=== PATIENT | male | born 1940 | race Caucasian/White ===

== ENCOUNTER 2017-11-23 15:20 | Inpatient (IN) | payer MEDICARE, BC ==
[~2017-11-23] VITALS: Ht 182.9 cm; Wt 88.1 kg
[~2017-11-23 15:20] MED LIST: ALLO300 PO; ALLO300T2 PO; AMIO200T PO; CARV3.12 PO; CARV3.125 PO; CEFAZOLIN; CYCL10TA PO; FAMO20TA2 PO; FURO20TA PO; GLEE400T2 PO; LIDO1PAD52 TOPICAL; MIDO5TAB PO; NEPHRO PO; NEPHTAB3 PO; PERI PO; POTA-163 PO; POTA20TA5 PO; TAMS0.4C4; TAMS5CAP PO; THERTAB15 PO; [UNRECOGNIZED DRUG - CODE] IV
[2017-11-23] MEDS ORDERED: SODIUM CHLORIDE 0.9% FLUSH 10 ML FLUSH IV FLUSH PRN ×3 (15:45→18:00)
[2017-11-23] MEDS ORDERED: MAGNESIUM HYDROXIDE SUSP 30 ML CUP PO PRN (15:45)
[2017-11-23] MEDS ORDERED: LACTULOSE SYRUP 20 GM/30 ML CUP PO PRN (15:45)
[2017-11-23] MEDS ORDERED: Vancomycin Consult Pharmacy 1 EA OTHER SCH (15:45)
[2017-11-23] MEDS ORDERED: ONDANSETRON HCL 4 MG/2 ML VIAL IVP PRN (15:45)
[2017-11-23] MEDS ORDERED: BISACODYL 10 MG SUPP RECTAL PRN (15:45)
[2017-11-23] MEDS ORDERED: NALOXONE HCL 0.4 MG/ML AMP IV PUSH PRN (15:45)
[2017-11-23] MEDS ORDERED: ACETAMINOPHEN 325 MG TAB PO PRN (15:45)
[2017-11-23] MEDS ORDERED: SENNOSIDES 8.6 MG TAB PO PRN (15:45)
--- NOTE | 2017-11-23 15:51 | HHI.HP ---
[facility] Primary [facility] Physician No Primary Care Physician Admission Diagnosis Symptomatic hypotension Diagnoses: (1) Hypotension Diagnosis: Principal (2) Hypoxemia Diagnosis: Principal (3) Peritonitis associated with peritoneal dialysis Diagnosis: Principal (4) Status post lumbar laminectomy Diagnosis: Principal (5) ESRD on peritoneal dialysis (6) A-fib Chief Complaint: Hypotension Travel History International Travel<30 Days: No Contact w/Intl Traveler <30 Da: No Traveled to Known Affected Are: No History of Present Illness Written by Kingston Ruffin, acting as scribe for Dr. Govea on 11/23/17 at 15: 50. 77-year-old male with past medical history significant for ESRD on PD, hypotension, A. fib anticoagulated on Eliquis at home, cardiomyopathy, anemia, aortic stenosis, CML, PVD, on chronic oxygen at home who suffered a mechanical fall landing on his back on 11/07 while trying to get out of daughter's car. Review of medical records. Patient was evaluated in the emergency department following fall and imaging as well as CT scan did not show any fractures therefore he was discharged home with pain medication. He returned back to the emergency department due to pain at [facility] where he was noted to have unstable acute L1 fracture. He was transferred to [facility] for neurosurgical evaluation. CT of the spine which showed L1-L2 fractures with prominent paravertebral hematoma with a hemoglobin of 7.7. On 11/10 underwent L1-L2 pedicular screw fixation by . Following surgery his stay was complicated due to hypotension requiring ICU stay with vasopressors. Postoperatively patient also had positive cultures of peritoneal fluid which grew MSSA and infectious disease was consulted. He was treated with vancomycin and cefepime initially, and later treated with intraperitoneal cefazolin. Recommendations were made to continue cefazolin 1 g with PD exchange through 12/01. He was cleared for discharge and admitted to [facility], [facility] was following him while he was in rehab. He is also being followed by nephrology and ID services. There was concerns for lumbar surgical incision drainage and MRI was completed which revealed fluid collections subcutaneously as well as a possible hematoma. This morning patient was in gym participating in physical therapy when his blood pressure dropped 78/50 and he became symptomatic. Patient was transferred back to bed and given a 250 mL bolus of normal saline with little to no improvement, BP remained once again systolic in the 70s. Patient also began generalized twitching as well as dozing off during conversation and hallucinations. Chest x -ray was obtained which showed moderate size pleural effusions along with possible atelectasis or consolidation. Labs from this morning with no leukocytosis, neutrophil count at 80.7, BMP stable, elevated creatinine secondary to end-stage renal disease. ABG did reveal hypoxia with a PCO2 of 57 , pH 7.45 and an O2 saturation of 87. He was placed on 3 L nasal cannula, but oxygen saturation unable to be obtained. She was seen and examined in room with nurse and daughter at bedside. He is awake, alert, and oriented 3 answering questions appropriately. There are some generalized twitching of his hands and feet. Patient denies any hallucinations although daughter states patient believes that there is someone else in the room. He denies any shortness of breath, cough, chest pain, headache, nausea, vomiting, or diarrhea. Patient did have one episode of loose stools when he arrived to rehab but this has resolved. He does report some lightheadedness. Nursing does say that patient has not been eating as well. Review of Systems Except as stated in HPI: all other systems reviewed are Neg Past Family Social History Past Medical History Hypotension End-stage renal disease on PD Cardiomyopathy with preserved EF Chronic anemia CML Mild aortic stenosis PVD A. fib Home oxygen Past Surgical History Bilateral knee surgeries Left hip replacement Bilateral inguinal hernia repair Bilateral cataract surgery PD catheter placement L1-L2 pedicular screw fixation Reported Medications Reported Meds & Active Scripts Active Zosyn Inj (Piperacillin Sod/Tazobactam Sod) 2.25 Gram Inj 2.25 Gm IV Q12HR 10 Days Potassium Chloride Microencaps 20 Meq Tab 20 Meq PO DAILY 30 Days Zyloprim (Allopurinol) 300 Mg Tab 150 Mg PO DAILY 30 Days Thera Tablet (Multivitamin with Folic Acid) 400 Mcg Tablet 1 Tab PO DAILY 30 Days Nephro-Jenelle Rx (Vitamin B Cmplx/Vit C/Folic AC) 1 Tab 1 Cap PO DAILY 30 Days Famotidine 20 Mg Tab 20 Mg PO DAILY 30 Days Gnp Senna Plus 8.6-50 mg (Sennosides-Docusate Sodium) 8.6 Mg-50 Mg Tab 1 Tab PO BID 30 Days Coreg (Carvedilol) 3.125 Mg Tab 3.125 Mg PO Q12HR 30 Days Amiodarone (Amiodarone HCl) 200 Mg Tab 200 Mg PO DAILY 1 Days Flexeril (Cyclobenzaprine HCl) 10 Mg Tab 10 Mg PO Q8H PRN 30 Days Flomax (Tamsulosin HCl) 0.4 Mg Cap 0.4 Mg PO HS 30 Days Midodrine 5 Mg Tab 5 Mg PO TID@07,12,17 30 Days [ceFAZolin INJ] 500 MG Inj 1,000 Mg .XX WITH DIALYSIS Reported Tamsulosin (Tamsulosin HCl) 0.4 Mg Cap 0.4 Mg HS Potassium Chloride ER (Potassium Chloride) 20 Meq Tab 20 Meq PO DAILY Nephro-Jenelle (B-Complex W/ C & Folic Acid) 1 Tab 1 Tab PO DAILY Lidocaine Patch 12 HR (Lidocaine) 5 % Patch 1 Patch TOPICAL DAILY Remove patch after 12 hours Carvedilol 3.125 Mg Tab 3.125 Mg PO BID Amiodarone (Amiodarone HCl) 200 Mg Tab 200 Mg PO DAILY Famotidine 20 Mg Tab 20 Mg PO DAILY Flexeril (Cyclobenzaprine HCl) 10 Mg Tab 10 Mg PO TID PRN Gleevec 400 Mg Tab (Imatinib Mesylate) 400 Mg Tab 400 Mg PO DAILY Allopurinol 300 Mg Tab 300 Mg PO DAILY Furosemide 20 Mg Tab 20 Mg PO DAILY Allergies: Coded Allergies: Sulfa (Sulfonamide Antibiotics) (Verified Allergy, Severe, 11/21/17) hydrocodone (Verified Allergy, Unknown, 11/21/17) levofloxacin (Verified Allergy, Unknown, 11/21/17) Family History Father: [place] Social History Tobacco: Former smoker, quit smoking 50 years ago Alcohol use: Occasionally Illicit drug use: Denies Physical Exam Physical Exam GENERAL: This is a well-developed male in no acute distress SKIN: Cool and dry. Bilateral lower extremity PVD skin discoloration. Left anterior lower leg with stage II wound that is dry open to air. Bilateral upper extremity small scattered ecchymosis with dry skin. Back and flank areas with ecchymosis and +1 pitting edema. HEAD: Atraumatic. Normocephalic. EYES: Pupils equal round and reactive. Extraocular motions intact. No scleral icterus. No injection or drainage. ENT: Nose without bleeding, purulent drainage. Throat without erythema. Airway patent. NECK: Trachea midline. No JVD. CARDIOVASCULAR: Regular rate and rhythm without murmurs, gallops, or rubs. RESPIRATORY: Clear to auscultation. Breath sounds equal bilaterally. No wheezes , rales, or rhonchi. GASTROINTESTINAL: Abdomen soft, non-tender, nondistended . No guarding. PD dialysis catheter in place with dry and intact dressings. MUSCULOSKELETAL: Extremities without clubbing, cyanosis, or edema. No joint tenderness, effusion, or edema noted. No calf tenderness. Lumbar spine incision with dehiscence now extending to the entire incision, moderate amounts of serosanguineous drainage with some brown tinge on dressing. No surrounding redness or warmth. NEUROLOGICAL: Awake and alert, 3. Dozing in and out. Cranial nerves II through XII grossly intact. Motor and sensory grossly within normal limits. 4/ 5 muscle strength in all muscle groups. Normal speech. Occasional hand and foot jerking/twitching. Caprini VTE Risk Assessment Caprini VTE Risk Assessment: Mod/High Risk (score >= 2) VTE Pharm Contraindication: Spinal surgery Caprini Risk Assessment Model Point Value = 1 Point Value = 2 Point Value = 3 Point Value = 5 Age 41-60 Minor surgery BMI > 25 kg/m2 Swollen legs Varicose veins or History of unexplained or recurrent spontaneous Oral contraceptives or hormone replacement Sepsis (< 1 month) Serious lung disease, including pneumonia (< 1 month) Abnormal pulmonary function Acute myocardial infarction Congestive heart failure (< 1 month) History of inflammatory bowel disease Medical patient at bed rest Age 61-74 Arthroscopic surgery Major open surgery (> 45 min) Laparoscopic surgery (> 45 min) Malignancy Confined to bed (> 72 hours) Immobilizing plaster cast Central venous access Age >= 75 History of VTE Family history of VTE Factor V Leiden Prothrombin [id number] Lupus anticoagulant Anticardiolipin antibodies Elevated serum homocysteine Heparin-induced thrombocytopenia Other congenital or acquired thrombophilia Stroke (< 1 month) Elective arthroplasty Hip, pelvis, or leg fracture Acute spinal cord injury (< 1 month) Prophylaxis Regimen Total Risk Factor Score Risk Level Prophylaxis Regimen 0-1 Low Early ambulation 2 Moderate Order ONE of the following: *Sequential Compression Device (SCD) *Heparin 5000 units SQ BID 3-4 Higher Order ONE of the following medications: *Heparin 5000 units SQ TID *Enoxaparin/Lovenox 40 mg SQ daily (WT < 150 kg, CrCl > 30 mL/min) *Enoxaparin/Lovenox 30 mg SQ daily (WT < 150 kg, CrCl > 10-29 mL/min) *Enoxaparin/Lovenox 30 mg SQ BID (WT < 150 kg, CrCl > 30 mL/min) AND/OR *Sequential Compression Device (SCD) 5 or more Highest Order ONE of the following medications: *Heparin 5000 units SQ TID (Preferred with Epidurals) *Enoxaparin/Lovenox 40 mg SQ daily (WT < 150 kg, CrCl > 30 mL/min) *Enoxaparin/Lovenox 30 mg SQ daily (WT < 150 kg, CrCl > 10-29 mL/min) *Enoxaparin/Lovenox 30 mg SQ BID (WT < 150 kg, CrCl > 30 mL/min) AND *Sequential Compression Device (SCD) Assessment and Plan Assessment and Plan 77-year-old male with past medical history significant for ESRD on PD, hypotension, A. fib anticoagulated on Eliquis at home, cardiomyopathy, anemia, aortic stenosis, CML, PVD, on chronic oxygen at home who suffered a mechanical fall landing on his back on 11/07 while trying to get out of daughter's car. CT of the spine which showed L1-L2 fractures with prominent paravertebral hematoma with a hemoglobin of 7.7. On 11/10 underwent L1-L2 pedicular screw fixation by . Postoperatively patient also had positive cultures of peritoneal fluid which grew MSSA and infectious disease was consulted. He was treated with vancomycin and cefepime initially, and later treated with intraperitoneal cefazolin. Recommendations were made to continue cefazolin 1 g with PD exchange through 12/01. [facility] transferred to inpatient setting due to symptomatic hypotension with concerns for sepsis. Symptomatic hypotension -Since admission patient's blood pressure has been on the low side. Daughter at bedside reports systolic ranges from 80s-100. In the past month has become more difficult to keep his BP up -Patient received 250 mL's of normal saline IV 2 while in rehab with minimal improvement of blood pressure, 80/50's -Suspect secondary to poor p.o. intake, in combination with ongoing peritoneal dialysis. He is negative about 1700ml. -We will admit to telemetry floor with close monitoring of vital signs and fluid status -Increase Midrin to 10 mg 3 times daily, and Florinef if needed Hypoxemia secondary to Healthcare acquired pneumonia -ABG with pH 7.45, PO2 57, bicarb 27, O2 saturation 87 -Chest x-ray completed shortly after patient completed first IV fluid bolus. X-ray personally reviewed, moderate sized bilateral pleural effusions with atelectasis or consolidation. Right side consolidation possible early developing pneumonia. -Patient started on broad-spectrum antibiotics, IV vancomycin and Zosyn -O2 nasal cannula to keep sats greater than 92% -Duo nebs as needed, incentive spirometer -PT/OT while inpatient Bilateral pleural effusions -Gentle hydration for now to help elevate BP. Once this is established plans to gently diurese. Mechanical fall with lumbar fracture Wound with increased drainage/dehiscence -s/p L1-L2 pedicular screw fixation by Dr. Sim - Pain control with Tramadol and Flexeril, stool softener -Further dehiscence of wound with ongoing copious amounts of drainage. -MRI of lumbar spine completed on 11/22: with uniform intensity subcutaneous fluid collection at L1-2 level measuring 5.4 x 1.1 x 5.6 cm which does not appear to extend beyond the superficial soft tissues. Although nonspecific given lack of contrast administration, the uniform signal intensity suggests postoperative seroma. Superficial subcutaneous heterogeneous collection at L5- S1 level is consistent with a superficial hematoma measuring 8.0 x 1.2 x 6.6 cm. -Nursing staff in [facility] contacted neurosurgeons office, MRIs faxed to Dr. Sim. [facility] recommends reevaluation by original surgeon. -Suspected surgical infection although unlikely that his area around surgical incision is not warm or red -Blood cultures collected while in rehab, wound culture sent, lactic acid was 1.0. Patient with no leukocytosis, and afebrile. -Patient started on IV vancomycin and Zosyn, infectious disease aware -Reconsult ID to follow patient while in the inpatient setting. -Spoke with Dr. Sim ) via phone who recommends patient to be transferred back to [facility] once stabilized for further reevaluation. Plan for tentative transfer tomorrow depending on patient's status. ESRD on PD Peritonitis + MSSA -Consult nephrology services, appreciate assistance - ID consulted , greatly appreciate assistance. - Continue Cefazolin 1g IV with PD until 12/01 -CBC 11/23 with no leukocytosis but neutrophils 80.7. A. fib Cardiomyopathy - Previously on anticoagulation on Eliquis. Anticoagulation contraindicated due to paravertebral hematoma after fall. - Continue Amiodarone 200 daily hold Coreg for the moment secondary to hypotension. Chronic myeloid leukemia - Continue home Gleevec DVT prophylaxis- early ambulation, chemical anticoagulation contraindicated Discussed with patient, daughter, nursing staff, CONSTANTINO Aguayo, and Dr. Joseph This note was transcribed by josesito Ruffin. I, Dr. Carlos Valdez personally performed the history, physical exam, and medical decision making; and confirmed the accuracy of the information in the transcribed note. Authenticated by Dr. Carlos Valdez on 11/23/17 at 17:37. Physician Certification 2 Midnight Certification Type: Admission for Inpatient Services Order for Inpatient Services The services are ordered in accordance with Medicare regulations or non- Medicare payer requirements, as applicable. In the case of services not specified as inpatient-only, they are appropriately provided as inpatient services in accordance with the 2-midnight benchmark. Estimated LOS (days): 2 days is the estimated time the patient will need to remain in the hospital, assuming treatment plan goals are met and no additional complications. Post-Hospital Plan: Inpatient Rehab Kingston Ruffin November 23, 2017 15:51 Carlos Anaya MD November 23, 2017 17:42
[2017-11-23 16:12] VITALS: BP 94/52; PULSE 65; RESP 18; TEMP 97.6; O2SAT 95
[2017-11-23] MEDS ORDERED: ceFAZolin INJ 1,000 MG VIAL PRN (16:15)
[2017-11-23] MEDS ORDERED: traMADol HCL 50 MG TAB PO PRN (16:15)
[2017-11-23] MEDS ORDERED: CYCLOBENZAPRINE HCL 10 MG TAB PO PRN ×2 (16:15→16:30)
[2017-11-23] MEDS ORDERED: RESP: ALBUTEROL 2.5 MG/IPRATROPIUM 0.5 MG NEB (PRN) NEB (16:30)
[2017-11-23] MEDS ORDERED: ACETAMINOPHEN 1000 MG/100 ML 100 ML IV SCH (16:45)
--- NOTE | 2017-11-23 17:56 | MB ---
cc: Lenin Marie MD DATE: 11/23/2017 REQUESTING PHYSICIAN: Elyse Ruffin MD HISTORY OF PRESENT ILLNESS: This is a 77-year-old male who was transferred from [facility] to [facility] because of worsening clinical condition. The patient developed hypotension earlier today and his physical therapy had to be discontinued. His blood pressure was down to 78/50. He was given fluid boluses and his blood pressure remained low despite that. A chest x-ray showed moderate pleural effusion. The patient has a history of recent lumbar surgery. He underwent L1-L2 pedicle screw fusion on 11/10/2017, because of fracture at L1-L2. He has a dressing from the surgery in place. He was noted to have increased drainage from the wound at the lower back, which dehisced. Culture of the drainage has been taken. The patient is currently very lethargic, and he is confused and hallucinating. His daughter at bedside notes that he is mentioning seeing things that are not there. He appears very restless. His temperature is normal and his current blood pressure is 94/52. Blood culture and wound culture from the back has been taken. Gram stain from the back wound has rare white cells and no organisms were seen. The white blood cell count is normal. The patient has end-stage renal disease and he receives peritoneal dialysis. He was noted to have positive recent culture from the peritoneal fluid due to methicillin sensitive Staph aureus. He is receiving intraperitoneal cefazolin, which had been a planned to continue until 12/01. The patient is unable to give any meaningful information, but he does respond verbally to questions appropriately. PAST MEDICAL HISTORY: Hypotension, atrial fibrillation, peripheral vascular disease, chronic anemia, cardiomyopathy, end-stage renal disease treated with peritoneal dialysis, CML, in remission, recent lumbar surgery with pedicular screw fixation, bilateral knee surgery, left hip replacement, bilateral inguinal hernia repair, bilateral cataract surgery. ALLERGIES: SULFA, HYDROCODONE, LEVOFLOXACIN. MEDICATIONS: Vancomycin, piperacillin/tazobactam, Nephrocaps, Cordarone, Pepcid, allopurinol, Flomax, ProAmatine, Flexeril, DuoNeb, Ultram. SOCIAL HISTORY: No tobacco. Positive alcohol use, 2-3 times a week. No illicit drugs. FAMILY HISTORY: Noncontributory. REVIEW OF SYSTEMS: Negative on a 10-point review except for as mentioned in history of present illness. PHYSICAL EXAMINATION: GENERAL: He is a slender male who is awake and alert, and confused. He appears somewhat restless. VITAL SIGNS: Temperature 97.6, BP 94/52, respirations 18, heart rate 65. HEENT: The head is atraumatic. Extraocular movements are grossly intact. Pupils reactive to light. No icterus. Oropharynx, slightly dry mucosa. NECK: Supple. No swelling or adenopathy. LUNGS: Decreased breath sounds at the bases. HEART: Regular rate and rhythm. No murmurs. No rubs. No gallops. ABDOMEN: Bowel sounds present, soft, nontender. The peritoneal dialysis catheter appears intact. BACK: There is mild redness along the incision of the lower back. There is an approximately 6 cm area of dehiscence at the incision, and there is a reddish drainage coming from the opening when palpated. There is also saturation of the dressing with reddish color drainage. EXTREMITIES: No clubbing, cyanosis or edema. Small area of ecchymosis at the right hip. NEUROLOGIC: Difficult to assess. The patient is somewhat tremulous. PSYCHIATRIC: The patient is calm. LABORATORY DATA: WBC 6.3, platelets 225, hemoglobin 10.1, 80% neutrophils, 5% lymphocytes, 10% monocytes. Creatinine 4.24, BUN 56, estimated GFR 14, sodium 135. IMPRESSION: 1. Hypotension. 2. Probable sepsis. The patient has hypotension and alteration in mental status. Drainage coming from his back wound, which may be the source of a potential sepsis. 3. Dehisced back wound. 4. Wound drainage from the back and possible wound infection. 5. Peritonitis being treated with antibiotics. Previous culture had methicillin-sensitive Staphylococcus aureus. RECOMMENDATIONS: 1. Monitor blood cultures. 2. Monitor wound culture. 3. Continue treatment with periodic vancomycin. The patient has renal failure and, therefore, vancomycin will need to be administered depending on his vancomycin level. 4. Continue cefazolin with dialysis. 5. Continue piperacillin/tazobactam. 6. Follow the clinical status. Thank you for this consultation. The patient's progress will be monitored with you and further recommendations will be given on followup. MD NELLY Lizama/IGOR , 05:12 PM , 05:55 PM
[2017-11-23] MEDS ORDERED: HEPARIN SODIUM - IV 10,000 UNITS/10 ML VIAL XX PRN (18:00)
[2017-11-23] MEDS ORDERED: PILL SPLITTER OTHER PRN (18:45)
[2017-11-23] MEDS: MIDODRINE 5 MG TAB PO SCH (19:24)
[2017-11-23 20:00] VITALS: BP 104/52; PULSE 76; RESP 17; TEMP 98.1; O2SAT 93
[2017-11-23] MEDS ORDERED: VANCOMYCIN INJ 1,000 MG in SODIUM CHLOR 0.9% 250 ML INJ 250 ML IV ONE (20:00)
[2017-11-23 20:06] VITALS: PULSE 86
[2017-11-23] MEDS ORDERED: AQUAPHOR OINT 50 GM TUBE TOPICAL SCH (21:00)
[2017-11-23] MEDS ORDERED: SODIUM CHLORIDE 0.9% FLUSH 10 ML FLUSH IV FLUSH SCH (21:00)
[2017-11-23] MEDS ORDERED: TAMSULOSIN HCL 0.4 MG CAP PO SCH (21:00)
[2017-11-23] MEDS: SODIUM CHLORIDE 0.9% FLUSH 10 ML FLUSH IV FLUSH SCH (21:27)
[2017-11-23] MEDS: DOCUSATE SODIUM 50 MG/SENNA 8.6 MG TAB PO SCH (21:28)
[2017-11-24] VITALS (7 sets, daily range): BP systolic 103–126; BP diastolic 52–62; PULSE 62–103; RESP 17–20; TEMP 97.3–97.8; O2SAT 97–100
[2017-11-24] MEDS: PIPERACIL-TAZO 2.25 GM PREMIX 50 ML IV SCH ×2 (02:57→13:30)
[2017-11-24] MEDS: MIDODRINE 5 MG TAB PO SCH ×2 (07:20→13:24)
[2017-11-24 07:44] LABS: AUTOMATED NEUTROPHIL # 6.2 TH/MM3 (1.8-7.7); BASOPHIL # 0.1 TH/MM3 (0-0.2); EOSINOPHIL # 0.1 TH/MM3 (0-0.4); EOSINOPHIL % 1.3 % (0.0-4.0); HEMATOCRIT 29.3 % (39.0-51.0); HEMOGLOBIN 9.8 GM/DL (13.0-17.0); LYMPH % 3.3 % (9.0-44.0); LYMPHOCYTE # 0.2 TH/MM3 (1.0-4.8); MEAN CELL VOLUME 98.5 FL (80.0-100.0); MEAN CORPUSCULAR HEMOGLOBIN 32.9 PG (27.0-34.0); MEAN CORPUSCULAR HGB CONC 33.4 % (32.0-36.0); MEAN PLATELET VOLUME 7.7 FL (7.0-11.0); MONOCYTE # 0.6 TH/MM3 (0-0.9); NEUT % 86.4 % (16.0-70.0); PLATELET COUNT 198 TH/MM3 (150-450); RED BLOOD COUNT 2.97 MIL/MM3 (4.50-5.90); RED CELL DISTRIBUTION WIDTH 18.9 % (11.6-17.2); WHITE BLOOD COUNT 7.2 TH/MM3 (4.0-11.0)
[2017-11-24 08:05] LABS: ALBUMIN 2.5 GM/DL (3.4-5.0); AST (GOT) 31 U/L (15-37); BLOOD UREA NITROGEN 49 MG/DL (7-18); CALCIUM 8.3 MG/DL (8.5-10.1); CHLORIDE 97 MEQ/L (98-107); CREATININE 4.14 MG/DL (0.60-1.30); GLOMERULAR FILTRATION RATE 14 ML/MIN (>89); GLUCOSE,RANDOM 110 MG/DL (74-106); SODIUM (NA) 138 MEQ/L (136-145)
[2017-11-24 08:06] LABS: ALT (GPT) 11 U/L (12-78)
[2017-11-24 08:08] LABS: ALKALINE PHOSPHATASE 80 U/L (45-117); TOTAL BILIRUBIN ADULT 0.8 MG/DL (0.2-1.0); TOTAL PROTEIN 4.7 GM/DL (6.4-8.2)
[2017-11-24] MEDS ORDERED: FAMOTIDINE 20 MG TAB PO SCH (09:00)
[2017-11-24] MEDS ORDERED: POTASSIUM CHLORIDE 20 MEQ CONTROLLED RELEASE TAB PO SCH (09:00)
[2017-11-24] MEDS ORDERED: AMIODARONE 200 MG TAB PO SCH (09:00)
[2017-11-24] MEDS ORDERED: IMATINIB MESYLATE 400 MG PO SCH (09:00)
[2017-11-24] MEDS ORDERED: VITAMIN B CMPLX/VITC/FOLIC AC CAP PO SCH (09:00)
[2017-11-24] MEDS ORDERED: ALLOPURINOL 300 MG TAB PO SCH (09:00)
[2017-11-24] MEDS ORDERED: [UNRECOGNIZED DRUG - OTHER] PO SCH (09:00)
[2017-11-24] MEDS ORDERED: [UNRECOGNIZED DRUG - OTHER] PO SCH (09:00)
[2017-11-24] MEDS: DOCUSATE SODIUM 50 MG/SENNA 8.6 MG TAB PO SCH (09:24)
[2017-11-24] MEDS: SODIUM CHLORIDE 0.9% FLUSH 10 ML FLUSH IV FLUSH SCH (09:26)
[2017-11-24] MEDS ORDERED: POTASSIUM CHLORIDE 10 MEQ CONTROLLED RELEASE TAB PO ONE ×2 (12:15)
--- NOTE | 2017-11-24 12:26 | HHI.IDPN ---
Note Infectious Disease Note Patient is noted to have twitching of his legs. His daughter is at bedside. She notes that he continues to have visual hallucinations. Notes pain in the back. Afebrile. Wound and blood cultures are pending. Continue to receive treatment for peritonitis due to MSSA with Cefazolin given intraperitoneally. Transferred from [facility] to [facility] because of worsening clinical condition. The patient developed hypotension and his physical therapy had to be discontinued. His blood pressure was down to 78/50. He was given fluid boluses and his blood pressure remained low despite that. A chest x-ray showed moderate pleural effusion. The patient has a history of recent lumbar surgery. He underwent L1-L2 pedicle screw fusion on 11/10/2017, because of fracture at L1-L2. The patient is unable to give any meaningful information, but he does respond verbally to questions appropriately. PAST MEDICAL HISTORY: Hypotension, atrial fibrillation, peripheral vascular disease, chronic anemia, cardiomyopathy, end-stage renal disease treated with peritoneal dialysis, CML, in remission, recent lumbar surgery with pedicular screw fixation, bilateral knee surgery, left hip replacement, bilateral inguinal hernia repair, bilateral cataract surgery. ALLERGIES: SULFA, HYDROCODONE, LEVOFLOXACIN. MEDICATIONS: Current Medications Medications (Trade) Dose Ordered Sig/Carly Route PRN Reason Start Time Stop Time Status Last Admin Dose Admin Acetaminophen (Tylenol) 650 mg Q4H PRN PO TEMP > 100.4 11/23/17 15:45 Ondansetron HCl (Zofran Inj) 4 mg Q6H PRN IVP NAUSEA OR VOMITING 11/23/17 15:45 Naloxone HCl (Narcan Inj) 0.4 mg UNSCH PRN IV PUSH SEE LABEL COMMENTS 11/23/17 15:45 Senna/Docusate Sodium (Angie-Colace) 1 tab BID PO 11/23/17 21:00 11/24/17 09:24 Magnesium Hydroxide (Milk Of Magnesia Liq) 30 ml Q12H PRN PO Mild constipation 11/23/17 15:45 Sennosides (Senokot) 17.2 mg Q12H PRN PO Moderate constipation 11/23/17 15:45 Bisacodyl (Dulcolax Supp) 10 mg DAILY PRN RECTAL SEVERE CONSITIPATION 11/23/17 15:45 Lactulose (Lactulose Liq) 30 ml DAILY PRN PO SEVERE CONSITIPATION 11/23/17 15:45 Pharmacy Profile Note 0 ml @ 0 mls/hr UNSCH OTHER 11/23/17 15:45 Piperacillin Sod/ Tazobactam Sod 50 ml @ 100 mls/hr Q12H IV 11/24/17 02:00 11/24/17 02:57 Sodium Chloride (NS Flush) 2 ml UNSCH PRN IV FLUSH FLUSH AFTER USING IV ACCESS 11/23/17 15:45 Sodium Chloride (NS Flush) 2 ml BID IV FLUSH 11/23/17 21:00 11/24/17 09:26 Allopurinol (Zyloprim) 150 mg DAILY PO 11/24/17 09:00 11/24/17 09:24 Tamsulosin HCl (Flomax) 0.4 mg HS PO 11/23/17 21:00 11/23/17 21:27 Cefazolin Sodium (Ancef Inj) 1,000 mg WITH DIALYSIS PRN .XX WITH DIALYSIS 11/23/17 16:15 Midodrine (Proamatine) 10 mg TID@07,12,17 PO 11/23/17 17:00 11/24/17 07:20 Famotidine (Pepcid) 20 mg DAILY PO 11/24/17 09:00 11/24/17 09:24 Amiodarone HCl (Cordarone) 200 mg DAILY PO 11/24/17 09:00 11/24/17 09:24 Vitamin B Complex/ Vit C/Folic Acid (Nephrocaps) 1 cap DAILY PO 11/24/17 09:00 11/24/17 09:24 Tramadol HCl (Ultram) 50 mg Q8H PRN PO PAIN 6-10 11/23/17 16:15 Emollient Ointment (Aquaphor Oint) 1 applic Q12HR TOPICAL 11/23/17 21:00 Cyclobenzaprine HCl (Flexeril) 10 mg Q8HR PRN PO Pain 1-5 11/23/17 16:30 Albuterol/ Ipratropium (Duoneb Neb) 1 ampule Q4HR NEB PRN NEB SOB/WHEEZING 11/23/17 16:30 Potassium Chloride (KCl) 20 meq DAILY PO 11/24/17 09:00 11/24/17 09:24 Heparin Sodium (Porcine) (Heparin Inj) 1,000 units WITH DIALYSIS PRN XX SEE LABEL COMMENTS 11/23/17 18:00 Sodium Chloride (NS Flush) 10 ml UNSCH PRN IV FLUSH SEE LABEL COMMENTS 11/23/17 18:00 Miscellaneous (Pill Splitter) 1 ea UNSCH PRN OTHER SEE LABEL COMMENTS 11/23/17 18:45 Patient Own Medication PT OWN MED: GLEEVEC(IMATINIB) 400 MG PO DA... DAILY PO 11/24/17 09:00 11/24/17 09:25 Potassium Chloride (KCl) 60 meq ONCE ONCE PO 11/24/17 12:15 11/24/17 12:16 UNV Objective: Vital Signs Date Time Temp Pulse Resp B/P (MAP) Pulse Ox O2 Delivery O2 Flow Rate FiO2 11/24/17 08:00 97.3 70 20 107/62 (77) 100 11/24/17 04:01 97 11/24/17 04:00 Nasal Cannula 2.00 11/24/17 04:00 97.8 62 17 126/60 (82) 99 11/24/17 00:00 Nasal Cannula 2.00 11/24/17 00:00 97.4 69 18 105/52 (69) 99 11/24/17 00:00 103 11/23/17 20:24 Nasal Cannula 2.00 11/23/17 20:06 86 11/23/17 20:00 Nasal Cannula 2.00 11/23/17 20:00 98.1 76 17 104/52 (69) 93 11/23/17 16:12 97.6 65 18 94/52 (66) 95 Laboratory Tests Test 11/24/17 06:51 White Blood Count 7.2 TH/MM3 Red Blood Count 2.97 MIL/MM3 Hemoglobin 9.8 GM/DL Hematocrit 29.3 % Mean Corpuscular Volume 98.5 FL Mean Corpuscular Hemoglobin 32.9 PG Mean Corpuscular Hemoglobin Concent 33.4 % Red Cell Distribution Width 18.9 % Platelet Count 198 TH/MM3 Mean Platelet Volume 7.7 FL Neutrophils (%) (Auto) 86.4 % Lymphocytes (%) (Auto) 3.3 % Monocytes (%) (Auto) 8.0 % Eosinophils (%) (Auto) 1.3 % Basophils (%) (Auto) 1.0 % Neutrophils # (Auto) 6.2 TH/MM3 Lymphocytes # (Auto) 0.2 TH/MM3 Monocytes # (Auto) 0.6 TH/MM3 Eosinophils # (Auto) 0.1 TH/MM3 Basophils # (Auto) 0.1 TH/MM3 CBC Comment DIFF FINAL Differential Comment Laboratory Tests Test 11/23/17 21:38 11/24/17 06:51 Ammonia 23 MCMOL/L Blood Urea Nitrogen 49 MG/DL Creatinine 4.14 MG/DL Random Glucose 110 MG/DL Total Protein 4.7 GM/DL Albumin 2.5 GM/DL Calcium Level 8.3 MG/DL Alkaline Phosphatase 80 U/L Aspartate Amino Transf (AST/SGOT) 31 U/L Alanine Aminotransferase (ALT/SGPT) 11 U/L Total Bilirubin 0.8 MG/DL Sodium Level 138 MEQ/L Potassium Level 3.1 MEQ/L Chloride Level 97 MEQ/L Carbon Dioxide Level 29.0 MEQ/L Anion Gap 12 MEQ/L Estimat Glomerular Filtration Rate 14 ML/MIN PHYSICAL EXAMINATION: GENERAL: Awake and alert, and confused. HEENT: The head is atraumatic. Extraocular movements are grossly intact. Pupils reactive to light. No icterus. Oropharynx, slightly dry mucosa. NECK: Supple. No swelling or adenopathy. LUNGS: Decreased breath sounds at the bases. No rhonchi HEART: Regular rate and rhythm. No murmurs. No rubs. No gallops. ABDOMEN: Bowel sounds present, soft, nontender. The peritoneal dialysis catheter appears intact. BACK: There is mild redness along the incision of the lower back. There is an approximately 6 cm area of dehiscence at the incision, and there is a reddish purulent drainage. EXTREMITIES: No clubbing, cyanosis or edema. Small area of ecchymosis at the right hip. NEUROLOGIC: Difficult to assess. The patient is somewhat tremulous. PSYCHIATRIC: Calm and cooperative. IMPRESSION: 1. Probable sepsis. The patient has hypotension and alteration in mental status. Drainage coming from his back wound, which may be the source of a potential sepsis. 2. Dehisced back wound. Recent lumbar surgery. Drainage coming from surgical site. Culture pending. 3. Peritonitis being treated with cefazolin. Previous culture had methicillin-sensitive Staphylococcus aureus. 4. End-stage renal disease. Patient receiving peritoneal dialysis. RECOMMENDATIONS: 1. Monitor blood cultures. 2. Monitor wound culture. 3. Continue treatment with periodic vancomycin. The patient has renal failure and, therefore, vancomycin will need to be administered Based on his vancomycin level. 4. Continue cefazolin with dialysis. 5. Continue piperacillin/tazobactam. 6. Follow the clinical status. Discussed with Dr. Govea. Plans being considered to transfer the patient to [facility] where his lumbar surgery was performed. Lenin Marie MD November 24, 2017 12:26
[2017-11-24] MEDS ORDERED: MIDO5TAB PO (13:04)
--- NOTE | 2017-11-24 13:09 | HHI.DCPOC ---
Discharge Care Plan Diagnosis: (1) Hallucinations (2) Dependence on peritoneal dialysis (3) Impaired mobility and activities of daily living (4) Hypoxemia (5) A-fib (6) Hypotension (7) ESRD on peritoneal dialysis (8) Peritonitis associated with peritoneal dialysis (9) Status post lumbar laminectomy (10) Encephalopathy acute (11) Hallucination, visual (12) Myoclonic jerking Goals to Promote Your Health * To prevent worsening of your condition and complications * To maintain your health at the optimal level Directions to Meet Your Goals Take your medications as prescribed Follow your dietary instruction Follow activity as directed Keep your appointments as scheduled Take your immunizations and boosters as scheduled If your symptoms worsen call your PCP, if no PCP go to Urgent Care Center or Emergency Room Smoking is Dangerous to Your Health. Avoid second hand smoke Call the 24-hour hour crisis hotline for domestic abuse at Carlos Anaya MD November 24, 2017 13:09
--- NOTE | 2017-11-24 13:10 | HHI.DS ---
Discharge Summary Admission Date November 23, 2017 at 16:24 Discharge Date: November 24, 2017 Admitting Diagnosis Symptomatic hypotension (1) Hypotension ICD Code: I95.9 - Hypotension, unspecified Diagnosis: Principal Status: Chronic (2) Hypoxemia ICD Code: R09.02 - Hypoxemia Diagnosis: Principal (3) Peritonitis associated with peritoneal dialysis ICD Code: T85.71XA - Infection and inflammatory reaction due to peritoneal dialysis catheter, initial encounter Diagnosis: Principal Status: Acute (4) Status post lumbar laminectomy ICD Code: Z98.890 - Other specified postprocedural states Diagnosis: Principal Status: Acute (5) ESRD on peritoneal dialysis ICD Code: N18.6 - End stage renal disease; Z99.2 - Dependence on renal dialysis (6) A-fib ICD Code: I48.91 - Unspecified atrial fibrillation Status: Chronic Procedures none Brief History - From Admission 77-year-old male with past medical history significant for ESRD on PD, hypotension, A. fib anticoagulated on Eliquis at home, cardiomyopathy, anemia, aortic stenosis, CML, PVD, on chronic oxygen at home who suffered a mechanical fall landing on his back on 11/07 while trying to get out of daughter's car. Review of medical records. Patient was evaluated in the emergency department following fall and imaging as well as CT scan did not show any fractures therefore he was discharged home with pain medication. He returned back to the emergency department due to pain at [facility] where he was noted to have unstable acute L1 fracture. He was transferred to [facility] for neurosurgical evaluation. CT of the spine which showed L1-L2 fractures with prominent paravertebral hematoma with a hemoglobin of 7.7. On 11/10 underwent L1-L2 pedicular screw fixation by . Following surgery his stay was complicated due to hypotension requiring ICU stay with vasopressors. Postoperatively patient also had positive cultures of peritoneal fluid which grew MSSA and infectious disease was consulted. He was treated with vancomycin and cefepime initially, and later treated with intraperitoneal cefazolin. Recommendations were made to continue cefazolin 1 g with PD exchange through 12/01. He was cleared for discharge and admitted to [facility], [facility] was following him while he was in rehab. He is also being followed by nephrology and ID services. There was concerns for lumbar surgical incision drainage and MRI was completed which revealed fluid collections subcutaneously as well as a possible hematoma. This morning patient was in gym participating in physical therapy when his blood pressure dropped 78/50 and he became symptomatic. Patient was transferred back to bed and given a 250 mL bolus of normal saline with little to no improvement, BP remained once again systolic in the 70s. Patient also began generalized twitching as well as dozing off during conversation and hallucinations. Chest x -ray was obtained which showed moderate size pleural effusions along with possible atelectasis or consolidation. Labs from this morning with no leukocytosis, neutrophil count at 80.7, BMP stable, elevated creatinine secondary to end-stage renal disease. ABG did reveal hypoxia with a PCO2 of 57 , pH 7.45 and an O2 saturation of 87. He was placed on 3 L nasal cannula, but oxygen saturation unable to be obtained. She was seen and examined in room with nurse and daughter at bedside. He is awake, alert, and oriented 3 answering questions appropriately. There are some generalized twitching of his hands and feet. Patient denies any hallucinations although daughter states patient believes that there is someone else in the room. He denies any shortness of breath, cough, chest pain, headache, nausea, vomiting, or diarrhea. Patient did have one episode of loose stools when he arrived to rehab but this has resolved. He does report some lightheadedness. Nursing does say that patient has not been eating as well. CBC/BMP: 11/24/17 0651 11/24/17 0651 Significant Findings Laboratory Tests Test 11/23/17 21:38 11/24/17 06:51 Red Blood Count 2.97 MIL/MM3 (4.50-5.90) Hemoglobin 9.8 GM/DL (13.0-17.0) Hematocrit 29.3 % (39.0-51.0) Red Cell Distribution Width 18.9 % (11.6-17.2) Neutrophils (%) (Auto) 86.4 % (16.0-70.0) Lymphocytes (%) (Auto) 3.3 % (9.0-44.0) Lymphocytes # (Auto) 0.2 TH/MM3 (1.0-4.8) Blood Urea Nitrogen 49 MG/DL (7-18) Creatinine 4.14 MG/DL (0.60-1.30) Random Glucose 110 MG/DL (74-106) Total Protein 4.7 GM/DL (6.4-8.2) Albumin 2.5 GM/DL (3.4-5.0) Calcium Level 8.3 MG/DL (8.5-10.1) Alanine Aminotransferase (ALT/SGPT) 11 U/L (12-78) Potassium Level 3.1 MEQ/L (3.5-5.1) Chloride Level 97 MEQ/L (98-107) Estimat Glomerular Filtration Rate 14 ML/MIN (>89) Imaging GENERAL: This is a well-developed male in no acute distress SKIN: Cool and dry. Bilateral lower extremity PVD skin discoloration. Left anterior lower leg with stage II wound that is dry open to air. Bilateral upper extremity small scattered ecchymosis with dry skin. Back and flank areas with ecchymosis and +1 pitting edema. HEAD: Atraumatic. Normocephalic. EYES: Pupils equal round and reactive. Extraocular motions intact. No scleral icterus. No injection or drainage. ENT: Nose without bleeding, purulent drainage. Throat without erythema. Airway patent. NECK: Trachea midline. No JVD. CARDIOVASCULAR: Regular rate and rhythm without murmurs, gallops, or rubs. RESPIRATORY: Clear to auscultation. Breath sounds equal bilaterally. No wheezes , rales, or rhonchi. GASTROINTESTINAL: Abdomen soft, non-tender, nondistended . No guarding. PD dialysis catheter in place with dry and intact dressings. MUSCULOSKELETAL: Extremities without clubbing, cyanosis, or edema. No joint tenderness, effusion, or edema noted. No calf tenderness. Lumbar spine incision with dehiscence now extending to the entire incision, moderate amounts of serosanguineous drainage with some brown tinge on dressing. No surrounding redness or warmth. NEUROLOGICAL: Awake and alert, 3. Dozing in and out. Cranial nerves II through XII grossly intact. Motor and sensory grossly within normal limits. 4/ 5 muscle strength in all muscle groups. Normal speech. Occasional hand and foot jerking/twitching. Pt update on day of discharge The patient is awake and alert, blood pressure is much improved with a systolic blood pressure above 100. Patient also requiring less oxygen on 2 L nasal cannula. The patient denies chest pain, shortness of breath. Pain in the back is controlled. As per granddaughter who is at bedside states that the patient has been hallucinating and the episodic myoclonic jerks have been worsening. Discontinue tramadol as this could cause seizures and myoclonic jerks. Will switch to oxycodone however these also could cause neurologic adverse effects due to metabolite that does not get cleared to to renal failure. The patient will need neurology consultation once he arrives to for the hospital. The patient will need ID, neurology, neurosurgery and nephrology consultation. All this was discussed with the imaging assistant that will take care of the patient in [facility]. Hospital Course 77-year-old male with past medical history significant for ESRD on PD, hypotension, A. fib anticoagulated on Eliquis at home, cardiomyopathy, anemia, aortic stenosis, CML, PVD, on chronic oxygen at home who suffered a mechanical fall landing on his back on 11/07 while trying to get out of daughter's car. CT of the spine which showed L1-L2 fractures with prominent paravertebral hematoma with a hemoglobin of 7.7. On 11/10 underwent L1-L2 pedicular screw fixation by . Postoperatively patient also had positive cultures of peritoneal fluid which grew MSSA and infectious disease was consulted. He was treated with vancomycin and cefepime initially, and later treated with intraperitoneal cefazolin. Recommendations were made to continue cefazolin 1 g with PD exchange through 12/01. Previously in [place] [facility], transferred to inpatient setting due to symptomatic hypotension with concerns for sepsis. Symptomatic hypotension -Since admission patient's blood pressure has been on the low side. Daughter at bedside reports systolic ranges from 80s-100. In the past month has become more difficult to keep his BP up -Patient received 250 mL's of normal saline IV 2 while in rehab with minimal improvement of blood pressure, 80/50's -Suspected secondary to poor p.o. intake, in combination with ongoing peritoneal dialysis. He is negative about 1700ml. -The patient was admitted to the telemetry floor with close monitoring of vital signs and fluid status -Midodrine dose was increased to 10 mg p.o. 3 times daily with improvement of the blood pressure. -Discontinue tramadol as these can cause orthostatic hypotension. Hypoxemia secondary to Healthcare acquired pneumonia -ABG with pH 7.45, PO2 57, bicarb 27, O2 saturation 87 -Chest x-ray completed shortly after patient completed first IV fluid bolus. X-ray personally reviewed, moderate sized bilateral pleural effusions with atelectasis or consolidation. Right side consolidation possible early developing pneumonia. -Patient started on broad-spectrum antibiotics, IV vancomycin and Zosyn -O2 nasal cannula to keep sats greater than 92% -Duo nebs as needed, incentive spirometer -PT/OT while inpatient Bilateral pleural effusions -Gentle hydration given. Bp better, started on diuretics. Mechanical fall with lumbar fracture Wound with increased drainage/dehiscence -s/p L1-L2 pedicular screw fixation by Dr. Sim - Pain control with Tramadol and Flexeril, stool softener -Further dehiscence of wound with ongoing copious amounts of drainage. -MRI of lumbar spine completed on 11/22: with uniform intensity subcutaneous fluid collection at L1-2 level measuring 5.4 x 1.1 x 5.6 cm which does not appear to extend beyond the superficial soft tissues. Although nonspecific given lack of contrast administration, the uniform signal intensity suggests postoperative seroma. Superficial subcutaneous heterogeneous collection at L5- S1 level is consistent with a superficial hematoma measuring 8.0 x 1.2 x 6.6 cm. -Nursing staff in [place] [facility] contacted neurosurgeons office, MRIs faxed to Dr. Sim. [facility] recommends reevaluation by original surgeon. -Suspected surgical infection although unlikely that his area around surgical incision is not warm or red -Blood cultures collected while in rehab, wound culture sent, lactic acid was 1.0. Patient with no leukocytosis, and afebrile. -Patient started on IV vancomycin and Zosyn, infectious disease aware -Reconsult ID to follow patient while in the inpatient setting. -Spoke with Dr. Sim via phone who recommends patient to be transferred back to [facility] once stabilized for further reevaluation. ESRD on PD Peritonitis + MSSA - Nephrology consulted. Patient - ID consulted - Continue Cefazolin 1g IV with PD until 12/01 -CBC / with no leukocytosis but neutrophils 80.7. A. fib Cardiomyopathy - Previously on anticoagulation on Eliquis. Anticoagulation contraindicated due to paravertebral hematoma after fall. - Continue Amiodarone 200 daily hold Coreg for the moment secondary to hypotension. Chronic myeloid leukemia - Continue home Gleevec Myoclonic Jerks -Myoclonic jerks observed on the patient. Ammonia level checked when normal range. Possibly secondary to metabolic encephalopathy due to pneumonia. -We will discontinue tramadol since this could cause myoclonic jerks. start Oxycodone. DVT prophylaxis- early ambulation, chemical anticoagulation contraindicated Pt Condition on Discharge: Stable Discharge Disposition: Disch to Another Hospital Discharge Time: > 30 minutes Discharge Instructions DIET: Follow Instructions for: Renal Failure Diet Activities you can perform: Continue Bedrest New Medications: Midodrine (Midodrine) 5 Mg Tab 10 MG PO TID@07,12,17 for hypotension, #90 TAB Continued Medications: Allopurinol (Zyloprim) 300 Mg Tab 150 MG PO DAILY for 30 Days, TAB Amiodarone (Amiodarone) 200 Mg Tab 200 MG PO DAILY for 1 Day, TAB B-Complex W/ C & Folic Acid (Nephro-Jenelle) 1 Tab 1 TAB PO DAILY for Nutritional Supplement, #30 TAB 0 Refills Carvedilol (Coreg) 3.125 Mg Tab 3.125 MG PO Q12HR for 30 Days, TAB Cyclobenzaprine (Flexeril) 10 Mg Tab 10 MG PO TID PRN for MUSCLE SPASM, #1 TAB 0 Refills Famotidine (Famotidine) 20 Mg Tab 20 MG PO DAILY for 30 Days, TAB Imatinib Mesylate (Gleevec 400 Mg Tab) 400 Mg Tab 400 MG PO DAILY Lidocaine Patch 12 HR (Lidocaine Patch 12 HR) 5 % Patch 1 PATCH TOPICAL DAILY for Pain Management, #1 BOX 0 Refills Remove patch after 12 hours Multivitamin with Folic Acid (Thera Tablet) 400 Mcg Tablet 1 TAB PO DAILY for 30 Days Piperacillin-Tazobactam Inj (Zosyn Inj) 2.25 Gram Inj 2.25 GM IV Q12HR for Infection for 10 Days, BAG 0 Refills Potassium Chloride ER (Potassium Chloride ER) 20 Meq Tab 20 MEQ PO DAILY for Electrolyte Replacement, #30 TAB 0 Refills Sennosides-Docusate Sodium (Gnp Senna Plus 8.6-50 mg) 8.6 Mg-50 Mg Tab 1 TAB PO BID for 30 Days, TAB Tamsulosin (Tamsulosin) 0.4 Mg Cap 0.4 MG HS for Manage Prostate Problems, #30 CAP 0 Refills Vitamin B Cmplx/Vit C/Folic AC (Nephro-Jenelle Rx) 1 Tab 1 CAP PO DAILY for 30 Days, TAB [ceFAZolin INJ] () 500 MG INJ 1000 MG .XX WITH DIALYSIS Discontinued Medications: Allopurinol (Allopurinol) 300 Mg Tab 300 MG PO DAILY Amiodarone (Amiodarone) 200 Mg Tab 200 MG PO DAILY for Regulate Heart Beat, #30 TAB 0 Refills Carvedilol (Carvedilol) 3.125 Mg Tab 3.125 MG PO BID, #60 TAB 0 Refills Cyclobenzaprine (Flexeril) 10 Mg Tab 10 MG PO Q8H PRN for MUSCLE SPASM for 30 Days, #90 TAB Famotidine (Famotidine) 20 Mg Tab 20 MG PO DAILY, #60 TAB 0 Refills Midodrine (Midodrine) 5 Mg Tab 5 MG PO TID@07,12,17 for 30 Days, TAB Potassium Chloride Microencaps (Potassium Chloride Microencaps) 20 Meq Tab 20 MEQ PO DAILY for 30 Days, TAB Tamsulosin (Flomax) 0.4 Mg Cap 0.4 MG PO HS for 30 Days, CAP Carlos Anaya MD November 24, 2017 13:10
--- NOTE | 2017-11-24 13:16 | HHI.NPPN ---
Subjective Renal Failure: Chronic, End Stage Renal Disease Interval History He was transferred to inpatient side for symptomatic hypotension. Imaging (MRI) was completed which revealed fluid collections subcutaneously as well as a possible hematoma. HE is to be transferred back to [facility] for additional neurosurgical intervention. Had PD last night. Negative UF. (Kavitha Amaya) Objective Data Data Vital Signs Date Time Temp Pulse Resp B/P (MAP) Pulse Ox O2 Delivery O2 Flow Rate FiO2 11/24/17 12:44 97.6 76 18 103/59 (74) 97 11/24/17 08:00 Nasal Cannula 3.00 11/24/17 08:00 97.3 70 20 107/62 (77) 100 11/24/17 04:01 97 11/24/17 04:00 Nasal Cannula 2.00 11/24/17 04:00 97.8 62 17 126/60 (82) 99 11/24/17 00:00 Nasal Cannula 2.00 11/24/17 00:00 97.4 69 18 105/52 (69) 99 11/24/17 00:00 103 11/23/17 20:24 Nasal Cannula 2.00 11/23/17 20:06 86 11/23/17 20:00 Nasal Cannula 2.00 11/23/17 20:00 98.1 76 17 104/52 (69) 93 11/23/17 16:12 97.6 65 18 94/52 (66) 95 (Kavitha Amaya) -: 11/24/17 0651 11/24/17 0651 Physical Exam General Appearance: Well Developed, Well Nourished, Comfortable, Pale, Sleeping (Kavitha Amaya) Throat Throat Exam: Oral Mucosa [place] & Moist (Kavitha Amaya) Pulmonary Resp Exam: Clear Bilaterally, Breath Sounds Equal (Kavitha Amaya) Cardiology CV Exam: Regular, Normal Sinus Rhythm (Kavitha Amaya) Gastrointestinal/Abdomen GI Exam: Soft, Non-Tender, Bowel Sounds Present (Kavitha Amaya) Musculoskeletal MS Exam: Joints Intact, Normal Gait, Normal Tone (Kavitha Amaya) Integumentary Skin Exam: Clear, Warm, Dry, Intact (Kavitha Amaya) Extremeties Extremities Exam: No Edema, Pedal Pulses Palpable (Kavitha Amaya) Neurologic Neuro Exam: Alert, Awake, Oriented, Speech Clear, Moving All Extremities (Kavitha Amaya) Psychiatric Psych Exam: Appropriate Responses (Kavitha Amaya) Assessment/Plan Discussed Condition With: Patient Problem List: (1) ESRD on peritoneal dialysis ICD Codes: N18.6 - End stage renal disease; Z99.2 - Dependence on renal dialysis Plan: Nightly PD: 5 cycles, 9 hrs, 2500 ml, no last fill IP dwell last cycle with antibiotics as below Intermittently monitor electrolytes on daily KCL replacement Avoid IVF, received bolus yesterday for hypotension (2) Peritonitis associated with peritoneal dialysis ICD Codes: T85.71XA - Infection and inflammatory reaction due to peritoneal dialysis catheter, initial encounter Status: Acute Plan: On IP cefazolin until 12/01 ID has followed culture of PD fluid to be obtained after antibiotics have finished. (3) Anemia ICD Codes: D64.9 - Anemia, unspecified Plan: On venofer and epogen (4) Hypotension ICD Codes: I95.9 - Hypotension, unspecified Status: Chronic Plan: On scheduled midodrine, increased to 10 mg (5) Impaired mobility and activities of daily living ICD Codes: Z74.09 - Other reduced mobility Status: Acute Plan: Was in [place] for PT/OT To go back to inpatient hospitalization at [facility] (6) Status post lumbar laminectomy ICD Codes: Z98.890 - Other specified postprocedural states Status: Acute Plan: With new subcutaneous fluid collection. May need drainage. (Kavitha Amaya) Plan Patient was seen and examined. Agree with above assessment and plan. (Nam Jeong MD) Kavitha Amaya November 24, 2017 13:16 Nam Jeong MD November 24, 2017 16:19
== END 2017-11-24 17:02 | disposition short-term general hospital (02) | DRG 919 ==
LOC: N04B 16:24
PROVIDERS: ADMIT Hospitalist; ATTEND Hospitalist
PROC: 3E1M39Z Irrigation of Peritoneal Cavity using Dialysate, Percutaneous Approach (ICD-10-PCS; principal; 2017-11-23)
DX: T81.31XA Disruption of external operation (surgical) wound, not elsewhere classified, initial encounter (principal); A41.9 Sepsis, unspecified organism; J18.9 Pneumonia, unspecified organism; G93.40 Encephalopathy, unspecified; J90 Pleural effusion, not elsewhere classified; N18.6 End stage renal disease; K65.9 Peritonitis, unspecified; T80.29XA Infection following other infusion, transfusion and therapeutic injection, initial encounter; I42.9 Cardiomyopathy, unspecified; C92.11 Chronic myeloid leukemia, BCR/ABL-positive, in remission; T85.71XA Infection and inflammatory reaction due to peritoneal dialysis catheter, initial encounter; I95.9 Hypotension, unspecified; I48.91 Unspecified atrial fibrillation; Y84.1 Kidney dialysis as the cause of abnormal reaction of the patient, or of later complication, without mention of misadventure at the time of the procedure; R09.02 Hypoxemia; I73.9 Peripheral vascular disease, unspecified; Y95 Nosocomial condition; Z96.642 Presence of left artificial hip joint; Y83.8 Other surgical procedures as the cause of abnormal reaction of the patient, or of later complication, without mention of misadventure at the time of the procedure; G25.3 Myoclonus; D64.9 Anemia, unspecified; I35.0 Nonrheumatic aortic (valve) stenosis; R26.9 Unspecified abnormalities of gait and mobility; R44.1 Visual hallucinations; Z99.2 Dependence on renal dialysis; Z99.81 Dependence on supplemental oxygen; Z79.01 Long term (current) use of anticoagulants; Z87.891 Personal history of nicotine dependence
CPT/HCPCS: 80053; 82140; 85025; 90935; 96366; J2543; J3370; J7050